=== PATIENT | female | born 1970 | race Caucasian/White ===

== ENCOUNTER 2022-12-18 10:34 | Day surgery (SDC) | payer BC ==
[~2022-12-18] VITALS: Ht 165.1 cm; Wt 78.9 kg
[~2022-12-18 10:34] MED LIST: Prinivil10 MG PO; THYROID30 MG PO
[2022-12-18] MEDS ORDERED: DHEA50 M2 (10:50)
[2022-12-18] MEDS ORDERED: Vitamin D1000 UNI1 (10:51)
[2022-12-18 12:29] VITALS: BP 106/75
== END 2022-12-18 12:42 | disposition home or self-care (01) ==
LOC: ORSCSDS 10:34
PROVIDERS: Internal Medicine Gastroenterology
PROC: 0DJD8ZZ Inspection of Lower Intestinal Tract, Via Natural or Artificial Opening Endoscopic (ICD-10-PCS; principal; 2022-12-18 12:00)
DX: Z12.11 Encounter for screening for malignant neoplasm of colon (principal); K57.30 Diverticulosis of large intestine without perforation or abscess without bleeding; K64.8 Other hemorrhoids; I10 Essential (primary) hypertension; Z79.899 Other long term (current) drug therapy
CPT/HCPCS: J2704; J7120